=== PATIENT | male | born 1960 | race Caucasian/White ===

== ENCOUNTER 2018-09-15 14:20 | Emergency (ER) | payer OTHER ==
[~2018-09-15] VITALS: Ht 177.8 cm; Wt 93.0 kg
[2018-09-15] MEDS ORDERED: CIPRO500 MG PO (15:57)
[2018-09-15] MEDS ORDERED: NORCO 5-325 TA1 EAC1 PO (16:00)
[2018-09-15 16:17] VITALS: BP 110/80
== END 2018-09-15 16:17 | disposition home or self-care (01) ==
LOC: M.ERS 14:20
DX: S91.341A Puncture wound with foreign body, right foot, initial encounter (principal); W22.09XA Striking against other stationary object, initial encounter; Y93.89 Activity, other specified; Y92.89 Other specified places as the place of occurrence of the external cause; Y99.8 Other external cause status; Z85.528 Personal history of other malignant neoplasm of kidney

== ENCOUNTER 2018-09-21 21:40 | Inpatient (IN) | payer OTHER ==
[~2018-09-21] VITALS: Ht 177.8 cm; Wt 106.6 kg
[~2018-09-21 21:40] MED LIST: CIPRO500 MG PO; NORCO 5-325 TA1 EAC1 PO
[2018-09-21 21:44] VITALS: BP 140/86
[2018-09-21 22:12] LABS: ABSOLUTE BASOPHILS 0.1 thou/uL (0.0-0.2); ABSOLUTE EOSINOPHILS 0.5 thou/uL (0.0-0.7); ABSOLUTE LYMPHOCYTES 3.7 thou/uL (0.8-5.3); ABSOLUTE MONOCYTES 0.5 thou/uL (0.0-1.2); ABSOLUTE NEUTROPHILS 4.9 thou/uL (1.6-8.1); BASOPHILS 1.3 %; EOSINOPHILS 5.3 %; HEMATOCRIT 42.2 % (42.0-52.0); HEMOGLOBIN 14.3 gm/dL (14.0-18.0); MCH 29.9 pg (26.0-34.0); MCV 87.9 fL (80.0-100.0); MONOCYTES 5.5 %; MPV 7.1 fl. (7.2-11.1); NUCLEATED RBCS 0 /100WBC; PLATELET COUNT* 255 thou/uL (150-400); POLYS 49.9 %; RDW-CV 14.1 % (10.5-14.5); WBC 9.8 thou/uL (4.0-11.0)
[2018-09-21 22:24] LABS: INR 0.9; PROTIME 9.4 Seconds (9.20-11.50)
[2018-09-21 23:17] LABS: URINE BILIRUBIN NEGATIVE (Negative); URINE BLOOD 2+ (Negative); URINE CLARITY CLEAR; URINE COLOR YELLOW; URINE GLUCOSE-RANDOM NEGATIVE (Negative); URINE KETONES NEGATIVE (Negative); URINE LEUKOCYTES-REFLEX NEGATIVE (Negative); URINE NITRITE-REFLEX NEGATIVE (Negative); URINE PROTEIN NEGATIVE (Negative); URINE SPECIFIC GRAVITY 1.025 (1.005-1.030); URINE UROBILINOGEN 0.2 E.U./dl (0.2-1.0)
[2018-09-21 23:23] LABS: BACTERIA-REFLEX 1-9 Few /HPF (None Seen); CASTS None Seen /LPF (None Seen); CRYSTALS None Seen /LPF (None Seen); SQUAMOUS 0-3 Few /LPF (0-3); URINE RBC 0-2 Rare /HPF (0-2); URINE WBC-REFLEX 0-5 Rare /HPF (0-5)
[2018-09-22] VITALS (7 sets, daily range): BP systolic 109–135; BP diastolic 66–80
[2018-09-22 07:40] LABS: ALBUMIN 3.1 g/dL (3.4-5.0); CALCIUM 8.3 mg/dL (8.5-10.1); CREATININE 1.6 mg/dL (0.6-1.3); POTASSIUM 4.8 mmol/L (3.5-5.1); TOTAL BILIRUBIN 0.2 mg/dL (<0.1-1.0); TOTAL PROTEIN 6.3 g/dL (6.4-8.2)
[2018-09-22 10:24] LABS: AMP/METHAMP Negative (Negative); BARBITURATES Negative (Negative); BENZODIAZEPINES Negative (Negative); COCAINE Negative (Negative); METHADONE Negative (Negative); OPIATES Negative (Negative); PCP Negative (Negative); THC Negative (Negative)
--- NOTE | 2018-09-22 12:21 | EKG ---
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
--- NOTE | 2018-09-22 12:23 | EKG ---
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 09/22/18 1223 0143 0143 Sylvester Chappell MD, FACC /EPI
--- NOTE | 2018-09-22 17:11 | CARDNUC ---
[place] [address] CARDIAC NUCLEAR IMAGING REPORT Name: MIGUEL FLORENTINO Room: [address] IN [facility]#: [id number] Admission: 09/21/18 Attend Phys: Tony Ocampo, Discharge: Date of : 60 Date of Service: 09/22/18 1710 Report #: [id number] THIS REPORT FOR: //name// APPROVED REPORT Imaging Protocol: Rest Tc-99m/Stress Tc-99m 1 day Study performed: 09/22/2018 09:42:00 Indication: Chest pain Patient Location: In-Patient Room #: 220 Stress Tech: Sera Andujar Stress Nurse: Belen Estrella RN [place] Tech:INDU Prado Ht: 5 ft 10 in Wt: 205 lbs BSA: 2.11 m2 BMI: 29.41 Medical History Medications: asa-81, atorvastatin, ntg Allergies: nkda Cardiac Risk Factors: age, tobacco Exercise History: Sedentary Resting Data Rest SPECT myocardial perfusion imaging was performed in supine position 30 minutes following the intravenous injection of 11.0 mCi of Tc-99m Sestamibi. Time of rest injection: 1425 Date: 09/22/2018 The images were gated to evaluate regional wall motion and calculate left ventricular ejection fraction. Administration Route: IV Administration Site: Right AC Pharmacologic Stress Pharmacologic stress test was performed by injecting Regadenoson 0.4 mg IV push over 10-15 seconds immediately followed by the intravenous injection of 35.3 mCi of Tc-99m Sestamibi. Time of stress injection: 1545 Date: 09/22/2018 Administration Route: IV Administration Site: Right AC Gated Stress SPECT was performed 40 minutes after stress injection. The images were gated to evaluate regional wall motion and calculate left [place] [address] CARDIAC NUCLEAR IMAGING REPORT Name: MIGUEL FLORENTINO Room: [address] IN ..#: [id number] Admission: 09/21/18 Attend Phys: Tony Ocampo, Discharge: Date of : 60 Date of Service: 09/22/18 1710 Report #: [id number] Stress only was performed in the Supine position. Stress Test Details Stress Test: Pharmacologic stress testing performed using 0.4 mg of regadenoson per 5 mL given IV over 10 seconds. Reason for pharmacologic stress test: physical limitation. Reversal agent Aminophyline 60 mg, given intravenously for chest pain. HR Max Heart Rate (APMHR): 162 bpm Resting HR: 75 bpm Target HR (85% APMHR): 137 bpm Max HR Achieved: 92 bpm % of APMHR: 56 Recovery HR: 81 bpm BP Resting BP: 108/64 mmHg Max BP: 110/60 mmHg Recovery BP: 148/74 mmHg ECG Resting ECG: Sinus Rhythm Stress ECG: Sinus Rhythm ST Change: None Arrhythmia: None Recovery ECG: Sinus Rhythm Recovery ST Change: None Recovery Arrhythmia: None Clinical Reason for Termination: Completed protocol Exercise duration: 0 min sec Exercise capacity: 1 METs The patient tolerated Lexiscan infusion without significant cardiac symptoms. Nurse Comments pt too sedated to walk on treadmill. pt had ntg paste removed 6 hrs prior to test. pt co chest pain during and after test. pt escorted to radiology with rn. slntg given for continued co of cp. pt escorte back to room after imaging and report given to his nurse sil Stress ECG Conclusion The baseline 12-lead EKG showed sinus rhythm without significant ST or T-wave abnormality. EKGs obtained during and post Lexiscan infusion showed sinus rhythm with no significant ST [place] [address] CARDIAC NUCLEAR IMAGING REPORT Name: MIGUEL FLORENTINO Room: [address]#: [id number] Admission: 09/21/18 Attend Phys: Tony Ocampo, Discharge: Date of : 60 Date of Service: 09/22/18 1710 Report #: [id number] when compared to baseline. Study Quality Study: Good Artifact: No artifact Study Data At rest, the left ventricular ejection fraction was 66%.. Post stress, the left ventricular ejection was 70%.. TID = 1.11. Perfusion Perfusion images show a moderate size moderate intensity reversible defect involving the basal to distal inferior wall. No other significant fixed or reversible defects were identified. Wall Motion Post stress wall motion shows an inferior wall motion abnormality. No other wall motion abnormalities were seen. Global LV systolic function is fairly well preserved. Nuclear Conclusion ECG Findings: negative for ischemia Clinical Findings: negative for ischemia Nuclear Findings: positive for ischemia Exercise Capacity: not assessed Left Ventricular Function: preserved Risk Study: high Myocardial perfusion images suggest reversible ischemia involving the inferior wall. There is a associated wall motion abnormality noted. Global LV systolic function is fairly well-preserved. This is a moderate to high risk study. <Conclusion> The baseline 12-lead EKG showed sinus rhythm without significant ST or T-wave abnormality. EKGs obtained during and post Lexiscan infusion showed sinus rhythm with no significant ST or T wave changes when compared to baseline. <ELECTRONICALLY SIGNED> By: Franklin Peters MD, FACC 09/22/18 171 09 09 Franklin Peters MD, FACC /INF
[2018-09-23] VITALS (13 sets, daily range): BP systolic 110–154; BP diastolic 58–91
[2018-09-23 06:52] LABS: ABSOLUTE BASOPHILS 0.1 thou/uL (0.0-0.2); ABSOLUTE EOSINOPHILS 0.4 thou/uL (0.0-0.7); ABSOLUTE MONOCYTES 0.6 thou/uL (0.0-1.2); ABSOLUTE NEUTROPHILS 8.3 thou/uL (1.6-8.1); BASOPHILS 0.8 %; EOSINOPHILS 3.2 %; HEMOGLOBIN 14.3 gm/dL (14.0-18.0); LYMPHOCYTES 24.1 %; MCH 28.7 pg (26.0-34.0); MCHC 32.4 g/dL (28.0-37.0); MCV 88.3 fL (80.0-100.0); MPV 7.5 fl. (7.2-11.1); NUCLEATED RBCS 0 /100WBC; PLATELET COUNT* 263 thou/uL (150-400); POLYS 66.9 %; RBC 4.98 mil/uL (4.50-6.00); RDW-CV 14.2 % (10.5-14.5); WBC 12.3 thou/uL (4.0-11.0)
[2018-09-23 06:59] LABS: ANION GAP 8 mmol/L (7-16); BUN 23 mg/dL (7-18); CALCIUM 8.6 mg/dL (8.5-10.1); CHLORIDE 109 mmol/L (98-107); CHOLESTEROL 181 mg/dL (<200); CO2 25 mmol/L (21-32); CREATININE 1.5 mg/dL (0.6-1.3); GLUCOSE 131 mg/dL (70-99); HDL CHOLESTEROL 31 mg/dL (>40); LDL CHOLESTEROL 125 mg/dL (<100); MAGNESIUM 1.8 mg/dL (1.8-2.4); POTASSIUM 4.8 mmol/L (3.5-5.1); SERUM ASSESSMENT Clear; SODIUM 142 mmol/L (136-145); TC:HDL 5.8 Ratio (Not establshd); TRIGLYCERIDE 128 mg/dL (<150); VLDL 26 mg/dL (<40)
[2018-09-24 00:50] VITALS: BP 144/77
[2018-09-24 04:30] VITALS: BP 125/66
[2018-09-24 04:59] LABS: HEMATOCRIT 40.2 % (42.0-52.0); HEMOGLOBIN 13.3 gm/dL (14.0-18.0); MCH 28.7 pg (26.0-34.0); MCV 86.9 fL (80.0-100.0); MPV 7.6 fl. (7.2-11.1); RBC 4.62 mil/uL (4.50-6.00); WBC 9.6 thou/uL (4.0-11.0)
[2018-09-24 05:13] LABS: ALBUMIN 2.7 g/dL (3.4-5.0); CALCIUM 8.6 mg/dL (8.5-10.1); CREATININE 1.5 mg/dL (0.6-1.3); POTASSIUM 4.5 mmol/L (3.5-5.1); TOTAL BILIRUBIN 0.3 mg/dL (<0.1-1.0); TOTAL PROTEIN 6.3 g/dL (6.4-8.2)
[2018-09-24 08:00] VITALS: BP 145/92
--- NOTE | 2018-09-24 08:28 | EKG ---
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
--- NOTE | 2018-09-24 11:15 | CARD ---
[address] [address] CARDIAC CATH REPORT Name: MIGUEL FLORENTINO Room: [address] IN [facility]#: [id number] Admission: 09/21/18 Attend Phys: Tony Ocampo MD Discharge: Date of : 60 Report #: [id number] THIS REPORT FOR: //name// APPROVED REPORT Study performed: 09/23/2018 08:38:11 Patient Details Patient Status: In-Patient Room #: The patient is a 58 year-old male Event Personnel Franklin Peters MD Air Brake Tester; Sylvester Chappell MD It Help Desk Manager; Erik Garcia RN Optometric Tech; Nini Parker RN Monitor, DESHAUN Yeboah Scrub Procedures Performed Left Heart Catheterization, Selective Right and Left Coronary Angiography, PTCA with deployment of a drug-eluting stent in the mid right coronary artery; left heart catheterization with selective coronary arteriography Indication Non-STEMI (>24 hrs to = 48 hrs) Risk Factors Arterial HypertensionDysplipidemia , Family History, Tobacco History (current) Admission/Lab Medications/Medications given during procedure Aspirin, Lipid Lowering Agents, Angiomax bolus and infusion Procedure Narrative The patient was brought electively to the Cardiac Catheterization Laboratory and was prepped and draped in a sterile manner. The right femoral was infiltrated with 1% Lidocaine subcutaneous anesthesia. A 6 Fr sheath was inserted into the right femoral artery. Coronary angiography was performed using coronary diagnostic catheters. The right coronary system was accessed and visualized with a JR4 Diagnostic catheter. The left coronary system was accessed and visualized with a Diagnostic catheter. Left ventricular/Aortic Valve gradient assessed via catheter pullback. Pre-demployment femoral angiogram was performed . Closure device was deployed with a 6 Fr Angioseal. The patient tolerated the procedure well and there were no [facility] [address] [place] [address] CARDIAC CATH REPORT Name: MIGUEL FLORENTINO Room: [address] IN [facility]#: [id number] Admission: 09/21/18 Attend Phys: Tony Ocampo MD Discharge: Date of : 60 Report #: [id number] complications associated with the procedure. There was no hematoma. Intraoperative Conscious Sedation Sedation start time: 09:59 Case end Time: 10:37 Fentanyl 125.0 mcg Versed 6.0 mg Fluoro Time: 9.9 minutes Dose: DAP 980542 cGycm2 1709 mGy Contrast Type and Amount: Visipaque 300 ml Coronary Angiography The patient's coronary anatomy is right dominant. Diagnostic Cath Left Main Normal and bifurcates into LAD and circumflex coronary arteries. LAD Normally proximal mid and distal portion. Diagonal 1 Normal large and branched. Circumflex Normal in the proximal mid and distal portion. The distal vessel is small in caliber OM1 Normal and small in caliber. OM2 Large and branched with 40% narrowing proximally. Right Coronary Normal in the proximal portion. There is a 90% stenosis with associated thrombus in the midportion. The distal vessel appears normal. R PDA Normal. RPLV Normal. Left Ventriculography Left Ventriculography was not performed. Hemodynamics The aortic pressure is 109/67 mmHg with a mean of 45 mmHg. The left ventricular pressure is 134/12 mmHg with a mean of mmHg. The left ventricular end diastolic pressure is 23 mmHg. There was no gradient across the aortic valve upon pullback. PCI Technique Lesion Anticoagulation was achieved with Angiomax. Percutaneous coronary intervention was performed on the mid right coronary artery. The lesion stenosis prior to intervention was 90% with CHASITY 3 flow. A 6Fr AR1 Guide Catheter was used to engage the RCA ostium. A 180cm [employer] Interventional Guidewire was used [place] [address] CARDIAC CATH REPORT Name: MIGUEL FLORENTINO Room: [address]#: [id number] Admission: 09/21/18 Attend Phys: Tony Ocampo MD Discharge: Date of : 60 Report #: [id number] BALLOON DILATION A Balloon catheter Trek RX 2.5x12mm was inserted and inflated up to 12atm for 13seconds. Additional Inflation: 14atm for 10seconds. Additional Inflation: 16atm for 13seconds. STENT DEPLOYMENT A drug-eluting stent [id number] Xience Aylin was inserted and inflated up to 18atm for 12seconds. Additional Inflation: 20atm for 9seconds. POST STENT DEPLOYMENT BALLOON DILATION A Balloon catheter NC Trek 3.5x15mm was inserted and inflated up to 22atm for 5seconds. Additional Inflation: 18atm for 8seconds. Additional Inflation: 22atm for 11seconds. Final angiography reveals 10 % stenosis with CHASITY 3 flow. Conclusion 1. Severe 90% stenosis of the mid right coronary artery with associated thrombus. (Culprit vessel) 2. 40% stenosis of a large second obtuse marginal branch. 3. No other occlusive coronary artery disease noted. 4. Left ventriculography not performed. 5. LVEDP 19 mmHg. 6 successful percutaneous coronary intervention with deployment of a drug-eluting stent at site of 90% mid right coronary stenosis with local thrombus at the site; final cineangiograms demonstrated 10% residual narrowing with CHASITY-3 flow to the distal vessel and no residual thrombus Recommendations Cardiac Risk Reduction Program Aggressive Medical Therapy 1. Percutaneous coronary intervention to the mid right coronary artery. 2. Continue aggressive risk factor modification. Medications Administered Aspirin (any) [place] [address] CARDIAC CATH REPORT Name: MIGUEL FLORENTINO Room: [address] IN [facility].#: [id number] Admission: 09/21/18 Attend Phys: Tony Ocampo MD Discharge: Date of : 60 Report #: [id number] Diagnostic Cath Approved by: Franklin Peters MD Date/Time: 09/24/2018 11:09:50 <ELECTRONICALLY SIGNED> By: Sylvester Chappell MD, [facility] 09/24/18 1115 1115 [id number] Chappell MD, [facility] /INF
[2018-09-24 11:17] VITALS: BP 145/92
[2018-09-24] MEDS ORDERED: LIPITOR40 MG PO (11:19)
[2018-09-24] MEDS ORDERED: LOPRESSOR25 PO (11:19)
[2018-09-24] MEDS ORDERED: PLAVIX 75 MG TA75 M1 PO (11:19)
[2018-09-24] MEDS ORDERED: ASPIR 8181 M1 PO (11:20)
--- NOTE | 2018-09-24 17:57 | EKG ---
[place] [address] ELECTROCARDIOGRAM REPORT Name: MIGUEL FLORENTINO Room: [address] DIS IN M.R.#: [id number] Admission: 09/21/18 Attend Phys: Tony Ocampo MD Discharge: 09/24/18 Date of : 60 Report #: [id number] THIS REPORT FOR: //name// 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[place] : 1960 Requested By: Franklin Peters Order Number: [id number] MD: Quincy Magaña Measurements Intervals [place] Rate: 88 P: 37 [place]: 161 QRS: -40 QRSD: 102 T: 16 QT: 351 QTc: 425 Interpretive Statements Sinus rhythm Left axis deviation Abnormal R-wave progression, late transition Baseline wander in lead(s) V3,V5 Compared to ECG 09/22/2018 01:43:14 No significant changes Electronically Signed On 09-24-2018 17:57:13 CDT by Quincy Magaña [email or web address] <ELECTRONICALLY SIGNED> By: Quincy Magaña MD, [facility] 09/24/18 1757 02 02 Quincy Magaña MD, [facility] /EPI
[2018-09-26] MEDS ORDERED: NITROGLYCERIN0.4 MG SUBLING (11:48)
== END 2018-09-24 11:35 | disposition home or self-care (01) | DRG 247 ==
LOC: M.ERS 21:40 → M.TBA-ER 23:15 → M.2W 09-22 13:45
PROVIDERS: Emergency Medicine; Family Medicine; Internal Medicine Cardiovascular Disease; ADMIT Internal Medicine
PROC: 027034Z Dilation of Coronary Artery, One Artery with Drug-eluting Intraluminal Device, Percutaneous Approach (ICD-10-PCS; principal; 2018-09-23)
PROC: 4A023N7 Measurement of Cardiac Sampling and Pressure, Left Heart, Percutaneous Approach (ICD-10-PCS; principal; 2018-09-23)
PROC: B211YZZ Fluoroscopy of Multiple Coronary Arteries using Other Contrast (ICD-10-PCS; principal; 2018-09-23)
PROC: B41FYZZ Fluoroscopy of Right Lower Extremity Arteries using Other Contrast (ICD-10-PCS; principal; 2018-09-23)
DX: I21.4 Non-ST elevation (NSTEMI) myocardial infarction (principal); I25.10 Atherosclerotic heart disease of native coronary artery without angina pectoris; N18.9 Chronic kidney disease, unspecified; F17.210 Nicotine dependence, cigarettes, uncomplicated; Z85.528 Personal history of other malignant neoplasm of kidney; Z79.899 Other long term (current) drug therapy; Z79.82 Long term (current) use of aspirin; Z90.5 Acquired absence of kidney; Z71.6 Tobacco abuse counseling

== ENCOUNTER 2019-05-19 19:12 | Inpatient (IN) | payer OTHER ==
[~2019-05-19] VITALS: Ht 177.8 cm; Wt 103.4 kg
[~2019-05-19 19:12] MED LIST changes: +ASPIR 8181 M1 PO; +LIPITOR40 MG PO; +LOPRESSOR25 PO; +NITROGLYCERIN0.4 MG SUBLING; +PLAVIX 75 MG TA75 M1 PO
[2019-05-19 19:26] VITALS: BP 125/77
[2019-05-19 19:47] LABS: ABSOLUTE BASOPHILS 0.1 thou/uL (0.0-0.2); ABSOLUTE EOSINOPHILS 0.4 thou/uL (0.0-0.7); ABSOLUTE MONOCYTES 0.5 thou/uL (0.0-1.2); ABSOLUTE NEUTROPHILS 6.2 thou/uL (1.6-8.1); BASOPHILS 1.2 %; EOSINOPHILS 4.1 %; HEMATOCRIT 44.5 % (42.0-52.0); HEMOGLOBIN 15.4 gm/dL (14.0-18.0); LYMPHOCYTES 29.2 %; MCH 29.9 pg (26.0-34.0); MCHC 34.6 g/dL (28.0-37.0); MCV 86.5 fL (80.0-100.0); MONOCYTES 4.7 %; MPV 7.2 fl. (7.2-11.1); NUCLEATED RBCS 0 /100WBC; PLATELET COUNT* 286 thou/uL (150-400); POLYS 60.8 %; RBC 5.15 mil/uL (4.50-6.00); RDW-CV 14.9 % (10.5-14.5); WBC 10.2 thou/uL (4.0-11.0)
[2019-05-19 19:54] LABS: CREATININE 1.7 mg/dL (0.6-1.3); POTASSIUM 4.2 mmol/L (3.5-5.1)
[2019-05-19 19:58] LABS: PROTIME 10.1 Seconds (9.20-11.50)
[2019-05-19 20:05] LABS: ALBUMIN 4.1 g/dL (3.4-5.0); TOTAL BILIRUBIN 0.5 mg/dL (<0.1-1.0); TOTAL PROTEIN 8.1 g/dL (6.4-8.2)
[2019-05-19 21:15] VITALS: BP 117/67
[2019-05-19 21:30] VITALS: BP 106/69
[2019-05-20 04:43] VITALS: BP 127/75
[2019-05-20 07:30] VITALS: BP 123/56
--- NOTE | 2019-05-20 09:41 | EKG ---
[place] [address] ELECTROCARDIOGRAM REPORT Name: MIGUEL FLORENTINO Room: [address] IN ..#: [id number] Admission: 05/19/19 Attend Phys: John Carr Discharge: Date of : 60 Date of Service: 05/19/191936 Report #: [id number] THIS REPORT FOR: //name// [facility] ED Test Date: 2019-05-19 Test Time: 19:37:01 Pat Name: MIGUEL FLORENTINO Department: Room: 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: : 1960 Requested By: Vonnie Manuel Order Number: [id number] MD: Quincy Magaña Measurements Intervals [place] Rate: 83 P: 21 [place]: 170 QRS: -28 QRSD: 99 T: 27 QT: 349 QTc: 410 Interpretive Statements Sinus rhythm Borderline left axis deviation Abnormal R-wave progression, late transition Compared to ECG 05/18/2019 11:44:44 No significant changes Electronically Signed On 05-20-2019 9:40:28 [employer]AREPOINT APPLICATION ARCHITECT by Quincy Magaña [email or web address] <ELECTRONICALLY SIGNED> By: Quincy Magaña MD, FACC 05/20/19 0940 193 36 Quincy Magaña MD, [facility] /EPI
[2019-05-20 11:50] VITALS: BP 129/72
[2019-05-20 16:56] VITALS: BP 124/64
[2019-05-20 20:00] VITALS: BP 138/65
[2019-05-21] VITALS: BP 130/74
[2019-05-21 04:00] VITALS: BP 137/75
[2019-05-21 04:48] LABS: ABSOLUTE BASOPHILS 0.1 thou/uL (0.0-0.2); ABSOLUTE EOSINOPHILS 0.4 thou/uL (0.0-0.7); ABSOLUTE LYMPHOCYTES 2.3 thou/uL (0.8-5.3); ABSOLUTE MONOCYTES 0.6 thou/uL (0.0-1.2); ABSOLUTE NEUTROPHILS 3.4 thou/uL (1.6-8.1); BASOPHILS 0.9 %; HEMATOCRIT 41.8 % (42.0-52.0); HEMOGLOBIN 14.1 gm/dL (14.0-18.0); MCH 29.3 pg (26.0-34.0); MCHC 33.8 g/dL (28.0-37.0); MCV 86.7 fL (80.0-100.0); MONOCYTES 8.9 %; MPV 7.1 fl. (7.2-11.1); NUCLEATED RBCS 0 /100WBC; PLATELET COUNT* 248 thou/uL (150-400); POLYS 50.2 %; RBC 4.82 mil/uL (4.50-6.00); RDW-CV 15.2 % (10.5-14.5); WBC 6.7 thou/uL (4.0-11.0)
[2019-05-21 05:01] LABS: CALCIUM 8.6 mg/dL (8.5-10.1); CREATININE 1.4 mg/dL (0.6-1.3); POTASSIUM 4.4 mmol/L (3.5-5.1)
[2019-05-21 08:00] VITALS: BP 124/84
[2019-05-21] MEDS ORDERED: ELIQUIS5 MG PO ×2 (08:24)
[2019-05-21 10:51] VITALS: BP 124/84
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
== END 2019-05-21 11:56 | disposition home or self-care (01) | DRG 176 ==
LOC: M.ERS 19:12 → M.TBA-ER 20:12 → M.2W 20:12
PROVIDERS: Emergency Medicine; Internal Medicine; ADMIT Internal Medicine
DX: I26.99 Other pulmonary embolism without acute cor pulmonale (principal); D68.59 Other primary thrombophilia; I25.10 Atherosclerotic heart disease of native coronary artery without angina pectoris; E78.5 Hyperlipidemia, unspecified; F17.210 Nicotine dependence, cigarettes, uncomplicated; N18.9 Chronic kidney disease, unspecified; Z85.528 Personal history of other malignant neoplasm of kidney; Z95.5 Presence of coronary angioplasty implant and graft; Z79.899 Other long term (current) drug therapy; Z79.82 Long term (current) use of aspirin; Z90.5 Acquired absence of kidney; I25.2 Old myocardial infarction; Z71.6 Tobacco abuse counseling

== ENCOUNTER 2019-10-03 09:28 | Emergency (ER) | payer OTHER ==
[~2019-10-03] VITALS: Ht 177.8 cm; Wt 104.1 kg
[~2019-10-03 09:28] MED LIST changes: +ELIQUIS5 MG PO
[2019-10-03 10:17] LABS: ABSOLUTE BASOPHILS 0.1 thou/uL (0.0-0.2); ABSOLUTE EOSINOPHILS 0.3 thou/uL (0.0-0.7); ABSOLUTE LYMPHOCYTES 2.4 thou/uL (0.8-5.3); ABSOLUTE MONOCYTES 0.8 thou/uL (0.0-1.2); ABSOLUTE NEUTROPHILS 6.8 thou/uL (1.6-8.1); BASOPHILS 1.2 %; HEMOGLOBIN 15.2 gm/dL (14.0-18.0); LYMPHOCYTES 23.4 %; MCH 30.4 pg (26.0-34.0); MCHC 34.5 g/dL (28.0-37.0); MONOCYTES 7.3 %; MPV 7.4 fl. (7.2-11.1); NUCLEATED RBCS 0 /100WBC; PLATELET COUNT* 242 thou/uL (150-400); POLYS 65.1 %; RDW-CV 14.7 % (10.5-14.5); WBC 10.5 thou/uL (4.0-11.0)
[2019-10-03 10:31] LABS: APTT 29.3 Seconds (25.0-31.3); PROTIME 10.3 Seconds (9.20-11.50)
[2019-10-03 10:32] LABS: CALCIUM 8.5 mg/dL (8.5-10.1); CREATININE 1.7 mg/dL (0.6-1.3); POTASSIUM 4.5 mmol/L (3.5-5.1)
[2019-10-03 10:33] LABS: ALBUMIN 3.7 g/dL (3.4-5.0); TOTAL BILIRUBIN 0.4 mg/dL (<0.1-1.0); TOTAL PROTEIN 7.2 g/dL (6.4-8.2)
[2019-10-03 10:37] LABS: URINE BILIRUBIN NEGATIVE (Negative); URINE BLOOD 2+ (Negative); URINE CLARITY CLEAR; URINE COLOR YELLOW; URINE GLUCOSE-RANDOM NEGATIVE (Negative); URINE KETONES NEGATIVE (Negative); URINE LEUKOCYTES-REFLEX NEGATIVE (Negative); URINE NITRITE-REFLEX NEGATIVE (Negative); URINE PROTEIN NEGATIVE (Negative); URINE SPECIFIC GRAVITY 1.025 (1.005-1.030); URINE UROBILINOGEN 0.2 E.U./dl (0.2-1.0)
[2019-10-03 10:44] LABS: AMP/METHAMP Negative (Negative); BARBITURATES Negative (Negative); BENZODIAZEPINES Negative (Negative); COCAINE Negative (Negative); METHADONE Negative (Negative); OPIATES Negative (Negative); PCP Negative (Negative); THC Negative (Negative)
[2019-10-03 10:54] LABS: BACTERIA-REFLEX None Seen /HPF (None Seen); CASTS None Seen /LPF (None Seen); CRYSTALS None Seen /LPF (None Seen); MUCUS None Seen strn/LPF (None Seen); SQUAMOUS NONE SEEN /LPF (0-3); URINE RBC 0-2 Rare /HPF (0-2); URINE WBC-REFLEX None Seen /HPF (0-5)
[2019-10-03 13:06] VITALS: BP 127/81
== END 2019-10-03 13:10 | disposition home or self-care (01) ==
LOC: M.ERS 09:28
PROVIDERS: Personal Emergency Response Attendant
DX: K92.2 Gastrointestinal hemorrhage, unspecified (principal); R19.4 Change in bowel habit; F17.210 Nicotine dependence, cigarettes, uncomplicated; Z85.528 Personal history of other malignant neoplasm of kidney; Z95.5 Presence of coronary angioplasty implant and graft; Z90.5 Acquired absence of kidney

== ENCOUNTER → 2019-11-18 | Outpatient (CLI) | payer OTHER ==
--- NOTE | 2019-11-18 16:11 | CARDNUC ---
[place] [address] CARDIAC NUCLEAR IMAGING REPORT Name: MIGUEL FLORENTINO Room: [facility]#: [id number] Admission: 11/18/19 Attend Phys: Wei Cano Discharge: Date of : 60 Date of Service: 11/18/19 1610 Report #: [id number] THIS REPORT FOR: cc: FAM - No family physician/PCP FAM - No family physician/PCP Franklin Peters MD [facility] ~ APPROVED REPORT Imaging Protocol: Stress Tc-99m/Rest Tc-99m 1 day Study performed: 11/18/2019 10:00:00 Indication: CAD s/p OH, CAD s/p PCI Patient Location: Out-Patient Stress Tech: Audrey Espinal Stress Nurse: Belen Estrella RN Ht: 5 ft 10 in Wt: 220 lbs BSA: 2.17 m2 BMI: 31.56 Medical History Medical History: CAD s/p OH, CAD s/p stent, Current Smoker, Hyperlipidemia Medications: eliquis, atorvastatin, plavix, metoprolol Allergies: No known drug allergies Cardiac Risk Factors: Age, Current Smoker, Hyperlipidemia Previous Cardiac Procedures: PCI, Myocardial infarction Exercise History: Indeterminate Resting Data Rest SPECT myocardial perfusion imaging was performed in supine position 30 minutes following the intravenous injection of 10.5 mCi of Tc-99m Sestamibi. Time of rest injection: 10:25 The images were gated to evaluate regional wall motion and calculate left ventricular ejection fraction. Administration Route: IV Administration Site: Right AC Pharmacologic Stress Pharmacologic stress test was performed by injecting Regadenoson 0.4 mg IV push over 10-15 seconds immediately followed by the intravenous injection of 30.9 mCi of Tc-99m Sestamibi. Time of stress injection: 12:00 Administration Route: [place] [address] CARDIAC NUCLEAR IMAGING REPORT Name: MIGUEL FLORENTINO Room: [facility] MICHEL[facility] Jensen#: [id number] Admission: 11/18/19 Attend Phys: Wei Cano Discharge: Date of : 60 Date of Service: 11/18/19 1610 Report #: [id number] Administration Site: Right AC Heart Rate at time of stress injection: 93 bpm. Gated Stress SPECT was performed 45 minutes after stress injection. The images were gated to evaluate regional wall motion and calculate left ventricular ejection fraction. Prone imaging was performed. Stress Test Details Stress Test: Pharmacologic stress testing performed using 0.4 mg of regadenoson per 5 mL given IV over 10 seconds. HR Max Heart Rate (APMHR): 161 bpm Resting HR: 71 bpm Target HR (85% APMHR): 136 bpm Max HR Achieved: 95 bpm % of APMHR: 59 Recovery HR: 86 bpm BP Resting BP: 104/68 mmHg Max BP: 166/72 mmHg Recovery BP: 127/73 mmHg ECG Resting ECG: Sinus Rhythm Stress ECG: Sinus Rhythm ST Change: None Arrhythmia: None Recovery ECG: Sinus Rhythm Recovery ST Change: None Recovery Arrhythmia: None Clinical Reason for Termination: Completed protocol The patient tolerated Lexiscan infusion without significant cardiac symptoms. Nurse Comments pt states that he has hip problems anc cannot walk very far Stress ECG Conclusion The baseline twelve-lead EKG shows sinus rhythm without significant ST segment or T wave abnormality. EKGs obtained during and post Lexiscan infusion show sinus rhythm with no significant ST segment or T wave changes when compared to baseline. There were no [place] [address] CARDIAC NUCLEAR IMAGING REPORT Name: FLORENTINOMIGUEL Room: [facility]#: [id number] Admission: 11/18/19 Attend Phys: Wei Cano Discharge: Date of : 60 Date of Service: 11/18/19 1610 Report #: [id number] Study Quality Study: Good Artifact: Mild Apical thinning Study Data At rest, the left ventricular ejection fraction was 57%.. Post stress, the left ventricular ejection was 58%.. TID = 1.18. Perfusion Perfusion images obtained in the supine position at rest and post Lexiscan stress show mild photopenia of the apex which resolves completely with post-rest prone imaging suggesting artifact. There were no significant reversible defects identified. Wall Motion Normal left ventricular wall motion. Nuclear Conclusion ECG Findings: negative for ischemia Clinical Findings: negative for ischemia Nuclear Findings: negative for ischemia Exercise Capacity: not assessed Left Ventricular Function: normal Risk Study: low Myocardial perfusion images show no defect to suggest infarct or ischemia. Left ventricular systolic function appears normal on gated studies. This is a low risk study. <Conclusion> The baseline twelve-lead EKG shows sinus rhythm without significant ST segment or T wave abnormality. EKGs obtained during and post Lexiscan infusion show sinus rhythm with no significant ST segment or T wave changes when compared to baseline. There were no stress-induced arrhythmias. <ELECTRONICALLY SIGNED> By: Franklin Peters MD, FACC 11/18/19 161 09 09 Franklin Peters MD, FACC /INF
== END ==
LOC: M.NUC 07-04 11:03
PROVIDERS: ATTEND Internal Medicine
DX: I25.10 Atherosclerotic heart disease of native coronary artery without angina pectoris (principal); I25.2 Old myocardial infarction; E78.5 Hyperlipidemia, unspecified; F17.200 Nicotine dependence, unspecified, uncomplicated; Z98.61 Coronary angioplasty status; Z79.899 Other long term (current) drug therapy